=== PATIENT | male | born 1995 ===

== ENCOUNTER 2023-01-14 07:57 | Emergency (ER) | payer OTHER ==
[~2023-01-14] VITALS: Ht 162.6 cm; Wt 47.6 kg
[~2023-01-14 07:57] MED LIST: KETO10TA2 PO
== END 2023-01-14 09:58 | disposition home or self-care (01) ==
LOC: ER 07:57
DX: F41.8 Other specified anxiety disorders (principal); J45.909 Unspecified asthma, uncomplicated; Z87.891 Personal history of nicotine dependence